=== PATIENT | male | born 1985 | race Caucasian/White ===

== ENCOUNTER 2024-09-24 15:47 | Emergency (ER) | payer OTHER ==
[2024-09-24] MEDS: Lidocaine 1% 10 ML MDV INJECT ONE (17:00)
== END 2024-09-24 17:02 | disposition home or self-care (01) ==
LOC: JD.ED 15:47
DX: S61.412A Laceration without foreign body of left hand, initial encounter (principal); F17.210 Nicotine dependence, cigarettes, uncomplicated; X58.XXXA Exposure to other specified factors, initial encounter; Y93.89 Activity, other specified
CPT/HCPCS: 12002; 99282; J2003